=== PATIENT | female | born 1995 | race Caucasian/White ===

== ENCOUNTER 2024-04-08 09:36 | Inpatient (IN) | payer OTHER, SELFPAY ==
[2024-04-08] VITALS (50 sets, daily range): BP systolic 78–110; BP diastolic 47–70; PULSE 59–140; RESP 14–20; TEMP 35.6–37; O2SAT 92–100; BMI 35.0
--- NOTE | ~2024-04-08 | CT_ITS ---
CT of the Abdomen and Pelvis: Indication: Postoperative hypotension, assess for bleeding Technique: 2.5 mm axial scans were obtained through the abdomen and pelvis following intravenous adm inistration of 100 cc of Omnipaque 350. Dose reduction technique was used on this scan by utilizing a utomated exposure control and iterative reconstruction technique. The dose-length product (DLP) was 1 105.63 mGy-cm. Findings: Scans through the lung bases are unremarkable. The liver, spleen, pancreas, gallbladder, and adrenal glands are within normal limits. There is mild bilateral hydroureteronephrosis. No evidence of aortic aneurysm. No lymphadenopathy. No bowel obstruction or bowel wall thickening. There is no evidence to suggest acute appendicitis. Sm all amount of air in the anterior subcutaneous soft tissues are compatible with postoperative change. Images through the pelvis were performed. Urinary bladder collapsed around a Hough catheter. Heteroge neous appearance of the uterus is present, with air and fluid in the endometrial cavity, compatible w ith recent uterine surgery, likely section. No significant hematoma or hemorrhage identified . Impression: Status post recent presumed section with probable postoperative fluid and air in the endomet rial canal. Correlate for any possibility of endometritis. No significant hemorrhage/hematoma identified. Mild bilateral hydroureteronephrosis. Reviewed, dictated and finalized at location . Impression: Status post recent presumed section with probable postoperative fluid and air in the endometrial canal. Correlate for any possibility of endometritis . No significant hemorrhage/hematoma identified. Mild bilateral hydroureteronephrosis.
[2024-04-08] MEDS: ACETAMINOPHEN 500 MG TABLET 1000 MG PO (10:04)
[2024-04-08 10:22] LABS: Basophils Percent Auto 0.2 % (0.2-1.2); Eosinophils Percent Auto 0.3 % (0-4.4); Hematocrit 35.7 % (37.0-47.0); Hemoglobin 11.5 g/dL (12.0-15.0); Immature Granulocyte Percent A 0.7 % (0-0.5); Mean Corpuscular HGB Conc 32.2 g/dl (32-36); Mean Corpuscular Hemoglobin 27.3 pg (26-34); Mean Corpuscular Volume 84.8 fl (80-100); Mean Platelet Volume 10.2 fl (7.4-10.4); Monocytes Percent Auto 7.4 % (2.6-8.5); Neutrophils Absolute Auto 11.2 K/mm3 (1.3-6.7); Neutrophils Percent Auto 79.4 % (45.5-73.1); Platelet Count Result 339 k/mm3 (150-375); Red Blood Count 4.21 M/mm3 (4.2-5.4); Red Cell Distribution Width 13.8 % (11.5-14.5); White Blood Count 14.1 K/mm3 (4.5-10.0)
[2024-04-08] MEDS: LACTATED RINGERS 1,000 ML 125 ML IV CONT ×3 (10:24→14:01)
--- NOTE | 2024-04-08 10:28 | LDADM ---
This patient, Rosalba Brown, was admitted to Labor/Delivery/Recovery 119 on 04/08/24 at 09:36. Plans for labor, pain management and were discussed with patient. Patient/family oriented to hospital policies and general routines including ID bracelet, bed and alarms, visiting hours, pain management, procedures, bathroom and other care routines, personal items, smoking policy, room service/diet and guest tray routines, infant security routines, and visiting hours. Patient/Family are encouraged to report perceived risks to care and to ask questions if they do not understand what they are told or what they should do. See OBIX for further documentation.
[2024-04-08 11:12] LABS: HIV 1/2 Ab P24 Ag Result Negative (Negative)
--- NOTE | 2024-04-08 11:35 | PM.IMHP ---
H&P: HPI History of Present Illness Date/Time: 04/08/24 11:35 Chief Complaint: primary c section Narrative: Patient is a 28 year old who presents for primary c section. Her has been complicated by aortic stenosis, with normal echo and followed by cardiology during . She is asymptomatic. She also has a history of a forceps assisted delivery and 4th degree laceration with her first . Due to risk of recurrence, risks and benefits of attempting vaginal delivery vs primary c section were discussed with the patient, and she desires a primary c section. Denies strong contractions, LOF, vaginal bleeding. GOod movement. Review of Systems Review of Systems: All systems reviewed & are unremarkable except as noted in HPI and below PMFSH Family History Family History Grandparent Hemophilia Social History Social History Smoking status: Former smoker Tobacco type: cigarettes and e-cigarettes/vaping Second hand tobacco smoke exposure: No Smoking end date: 07/14/23 Substance use: never Do You Feel Safe in your Home?: Yes Lack of Transportation: No Lack of Food: Never True Current Housing: I Have Housing Concerned About Future Housing: No Difficulty Paying Gas/Electric Bills: No Difficulty Paying for Meds: No Currently Unemployed: No Education: High School Diploma/GED Difficulty w/ Childcare or Family Care: No Spiritual care concerns: No Meds Home Medications and Allergies Home Medications Medication Instructions Recorded Confirmed Type prenat.vits,terese,hwf-prmu-qmmjl 1 tablet PO DAILY 03/27/24 04/08/24 History Allergies Allergy/AdvReac Type Severity Reaction Status Date / Time Sulfa (Sulfonamide Allergy Swelling Verified 04/08/24 10:26 Antibiotics) Vital Signs Vital Signs - 24 hr 04/08/24 10:00 04/08/24 10:01 04/08/24 10:28 Pulse Rate 140 H 92 Blood Pressure 101/65 101/70 Oxygen Delivery Room Air Exam Const: General: comfortable and no acute distress Eyes: General: appearance normal, both eyes and all related structures Resp: Effort & Inspection: normal respiratory effort Cardio: Rate: regular rate Rhythm: regular rhythm Extrem: General: normal to inspection Psych: Mental Status: mental status grossly normal H&P: Results Labs Labs: Short CBC 04/08/24 Range/Units 10:06 WBC 14.1 H (4.5-10.0) K/mm3 Hgb 11.5 L (12.0-15.0) g/dL Hct 35.7 L (37.0-47.0) % Plt Count 339 (150-375) k/mm3 Assessment and Plan Assessment and plan (1) Hx of maternal fourth degree perineal laceration, currently : Code(s): O09.299 - Supervision of with other poor reproductive or obstetric history, unspecified trimester Status: Acute Assessment and Plan: - risks and benefits of trial of labor and delivery vs primary c section discussed with patient who would like to proceed with primary c section (2) Hx of forceps delivery in prior , currently : Code(s): O09.299 - Supervision of with other poor reproductive or obstetric history, unspecified trimester Status: Acute (3) Aortic stenosis due to bicuspid aortic valve: Code(s): Q23.0 - Congenital stenosis of aortic valve; Q23.1 - Congenital insufficiency of aortic valve Status: Acute Assessment and Plan: - seen by cardiology - echo wnl this - asymptomatic
--- NOTE | 2024-04-08 11:55 | WPDHPUPDATE1 ---
History and Physical Update Update Date/Time: 04/08/24 11:55 History and Physical has been reviewed, including an updated exam of the patient. There are NO changes in the patient's condition. Risks, benefits, and alternatives have been discussed and questions answered. Patient agrees to proceed with procedure.
[2024-04-08] MEDS: FAMOTIDINE 20 MG/2 ML VIAL IV PUSH (12:05)
[2024-04-08] MEDS: ONDANSETRON INJ 4 MG/2 ML VIAL IV PUSH ×2 (12:05→21:40)
--- NOTE | 2024-04-08 12:29 | WPDANESEPPF ---
Anes - Initial Pre Proc Eval Procedure: Operation Date: 04/08/24 12:00 Proposed Procedures p Repeat Section - Juancho Denise MD Date/Time: 04/08/24 12:29 Surgeon: Juancho Denise MD Pre Op Diagnosis: C/S Patient Data Age: 28 Gender: F Height: 1.57 m Weight: 87 kg Last Vital Signs Pulse 92 04/08/24 10:01 BP 101/70 04/08/24 10:01 O2 Del Method Room Air 04/08/24 10:28 Allergies Allergy/AdvReac Type Severity Reaction Status Date / Time Sulfa (Sulfonamide Allergy Swelling Verified 04/08/24 10:26 Antibiotics) Home Medications Medication Instructions Recorded Confirmed Type prenat.vits,terese,tun-kted-exxue 1 tablet PO DAILY 03/27/24 04/08/24 History Laboratory Tests 04/08/24 10:06 WBC 14.1 H K/mm3 (4.5-10.0) RBC 4.21 M/mm3 (4.2-5.4) Hgb 11.5 L g/dL (12.0-15.0) Hct 35.7 L % (37.0-47.0) MCV 84.8 fl (80-100) MCH 27.3 pg (26-34) MCHC 32.2 g/dl (32-36) RDW 13.8 % (11.5-14.5) Plt Count 339 k/mm3 (150-375) MPV 10.2 fl (7.4-10.4) Immature Gran % (Auto) 0.7 H % (0-0.5) Neut % (Auto) 79.4 H % (45.5-73.1) Lymph % (Auto) 12.0 L % (18.3-44.2) [place] % (Auto) 7.4 % (2.6-8.5) Eos % (Auto) 0.3 % (0-4.4) Baso % (Auto) 0.2 % (0.2-1.2) Lymph # (Auto) 1.70 K/mm3 (0.9-3.2) [place] # (Auto) 1.0 H K/mm3 (0.1-0.6) Eos # (Auto) 0.0 K/mm3 (0-0.3) Baso # (Auto) 0.0 K/mm3 (0.0-0.1) Abs Immat Gran (auto) 0.10 H K/mm3 (0.00-0.031) Absolute Neuts (auto) 11.2 H K/mm3 (1.3-6.7) Absolute Nucleated RBC 0.000 K/mm3 (0.0-0.012) Nucleated RBC % 0.0 % (0.0-0.2) RPR Pending HIV 1&2 Ab/P24 Ag 4thGn Negative (Negative) Blood Type AB Positive Antibody Screen Negative Patient hx anesthesia problems: none Family hx anesthesia problems: none Results Review: All pre-operative results and documents have been reviewed as part of the pre-operative evaluation. [facility] Family History Family History Grandparent Hemophilia Social History Social History Smoking status: Former smoker Tobacco type: cigarettes and e-cigarettes/vaping Second hand tobacco smoke exposure: No Smoking end date: 07/14/23 Substance use: never Do You Feel Safe in your Home?: Yes Lack of Transportation: No Lack of Food: Never True Current Housing: I Have Housing Concerned About Future Housing: No Difficulty Paying Gas/Electric Bills: No Difficulty Paying for Meds: No Currently Unemployed: No Education: High School Diploma/GED Difficulty w/ Childcare or Family Care: No Spiritual care concerns: No Anes - Eval Final PreProcedure Day of Procedure 04/08/24 12:29 Patient weight: obese Heart: regular rate and rhythm Lungs: clear to auscultation Airway: Mallampati scale class II Neurological: alert and oriented Last oral intake: >/= 8 hours ASA classification: II Emergent: no Anesthetic plan: proceed Anesthesia type and monitoring: regional spinal and standard monitoring Results Review: All pre-operative results and documents have been reviewed as part of the pre-operative evaluation. Informed Consent: The patient's anesthetic plan and its attendant risks and benefits were discussed with the patient/family/POA. Questions were solicited and answers provided to the satisfaction of the patient/family/POA.
[2024-04-08] MEDS: OXYTOCIN 30 UNITS/NS 500 ML 30 UNITS/500 ML BAG 125 UNITS IV CONT (14:01)
--- NOTE | 2024-04-08 16:40 | PC.NURSE ---
called to notify dr thibodeaux of soft BPs pt asymptomatic. Pt baseline Bps lower. no new orders.
--- NOTE | 2024-04-08 17:26 | P.PCNOB_ITS ---
OB - Delivery Note Procedure Delivery date: 04/08/24 Pre-op diagnosis: Other (previous forceps assisted vaginal delivery, previous fourth degree laceration) Post-op Diagnosis: Same Induction method: None Delivery monitor: External FHT Prior to decision for section, ACOG/SM labor guidelines were considered and discussed with the patient and staff. Decision made to proceed with the section.: Yes Procedure Performed: Primary Primary branch: low cervical, transverse Surgeon: Juancho Denise MD Anesthesia type: Spinal Description of Procedure/Findings: The patient was taken to the operating room where she was placed in the dorsal supine position with a leftward tilt. The electronic monitor was placed and heart rate was found to be reassuring. She was prepped and draped in the normal sterile fashion, and anesthesia was checked to be adequate. A Pfannensteil skin incision was made with the scalpel and carried through to the underlying layer of fascia with the scalpel. The fascia was incised in the midl ine and the incision extended laterally with the Packer scissors. The superior aspect of the fascial incision was then grasped with Benitez clamps, elevated, and the underlying rectus muscles dissected off bluntly and with Packer scissors. Attention was then turned to the inferior aspect of the fascial incision, which in similar fashion was grasped, elevated, and the rectus muscles dissected off.? The rectus muscles were then in the midline, and the peritoneum entered using two Peans and Metzenbaum scissors. The peritoneal incision was extended superiorly and inferiorly with good visualization of the bladder. With the bladder blade providing retraction and visualization, the lower uterine segment was incised in a transverse fashion with the scalpel. The uterine incision was then extended laterally. The bladder blade was removed and the infant's head was elevated and delivered atraumatically. The remainder of the infant was then delivered without difficulty, and the 's nose and mouth were suctioned with the bulb suction. The umbilical cord was doubly clamped and cut. The infant was then handed off to the waiting nursing staff. Specimens then obtained as listed below. The placenta was then removed manually and the uterus was exteriorized and cleared of all clots and debris. The uterine incision was repaired with 0- Monocryl in a running, interlocked fashion. The posterior cul-de-sac was manually cleared of all clots and debris. The uterus was returned to the abdomen. The gutters were then manually cleared of all clots and debris.? The uterine incision was visualized to be hemostatic. The fascia was reapproximated with 0-Vicryl in a running fashion. The subcutaneous tissues were irrigated with warmed normal saline, and hemostasis was assured. The subcutaneous tissue was greater than 2 cm and closed in a running fashion with 2-0 plain gut suture.? The skin was closed with 4-0 monocryl in a running subcuticular stitch. Fundal pressure was applied to express remaining intrauterine clots and debris. The patient tolerated the procedure well. Sponge, lap, and needle counts were correct times three per nursing. The patient was taken to the recovery room in stable condition. Complications: No immediate complications Condition: Stable Disposition: Floor Baby Date of : 04/08/24 Weeks of gestation at delivery: 39 gender: Male Weight (pounds): 9 Weight (ounces): 6 presentation: vertex Placenta delivery description: Expressed Cord Vessel Description: 3 Vessels, Nuchal Cord, Delayed Cord Clamping and Other (two possible umbilical varices noted )
--- NOTE | 2024-04-08 18:03 | PC.NURSE ---
Patient transferred to post room #292 via stretcher. Support person present. Oriented to unit, room, information board, rooming in, admission packet and security measures. Patient verbalizes understanding.
[2024-04-08] MEDS: KETOROLAC 15 MG/ML VIAL (*BKC) IV PUSH (18:30)
[2024-04-08] MEDS: SIMETHICONE 80 MG TAB.CHEW PO (18:31)
[2024-04-08] MEDS: DOCUSATE SODIUM 100 MG CAPSULE PO (18:31)
[2024-04-08] MEDS: ACETAMINOPHEN 325 MG TABLET 650 MG PO (18:31)
[2024-04-08] MEDS: diphenhydrAMINE HCl INJ 50 MG/ML VIAL 25 MG IV PUSH (18:33)
[2024-04-08] MEDS: DEXTROSE 5%/0.45% SOD CHL 1,000 ML 125 ML IV CONT (21:07)
[2024-04-08] MEDS: LIDOCAINE 5% PATCH 1 PATCH TRANSDERM (21:40)
[2024-04-09] VITALS (13 sets, daily range): BP systolic 73–93; BP diastolic 40–62; PULSE 64–84; RESP 14–18; TEMP 36.4–37; O2SAT 98–100
[2024-04-09] MEDS: KETOROLAC 15 MG/ML VIAL (*BKC) IV PUSH ×3 (00:57→13:00)
[2024-04-09] MEDS: ACETAMINOPHEN 325 MG TABLET 650 MG PO ×4 (00:58→18:51)
[2024-04-09] MEDS: DEXTROSE 5%/0.45% SOD CHL 1,000 ML 999 ML IV CONT (01:00)
[2024-04-09 05:04] LABS: Basophils Percent Auto 0.2 % (0.2-1.2); Eosinophils Absolute Auto 0.1 K/mm3 (0-0.3); Eosinophils Percent Auto 0.7 % (0-4.4); Hemoglobin 7.9 g/dL (12.0-15.0); Immature Granulocyte Percent A 0.8 % (0-0.5); Lymphocytes Absolute Auto 1.84 K/mm3 (0.9-3.2); Lymphocytes Percent Auto 14.4 % (18.3-44.2); Mean Corpuscular HGB Conc 30.4 g/dl (32-36); Mean Corpuscular Hemoglobin 27.3 pg (26-34); Mean Platelet Volume 10.5 fl (7.4-10.4); Neutrophils Absolute Auto 9.7 K/mm3 (1.3-6.7); Neutrophils Percent Auto 75.9 % (45.5-73.1); Platelet Count Result 266 k/mm3 (150-375); Red Blood Count 2.89 M/mm3 (4.2-5.4); Red Cell Distribution Width 14.1 % (11.5-14.5); White Blood Count 12.8 K/mm3 (4.5-10.0)
[2024-04-09 05:57] LABS: Estimated CRCL calculation 144 ml/min; Estimated Glomerular Filt Rate > 60
[2024-04-09] MEDS: DEXTROSE 5%/0.45% SOD CHL 1,000 ML 125 ML IV CONT (06:00)
[2024-04-09] MEDS: POLYSACCHARIDE IRON COMPLEX 150 MG CAPSULE PO ×2 (07:02→17:03)
[2024-04-09] MEDS: SIMETHICONE 80 MG TAB.CHEW PO ×3 (07:02→17:03)
[2024-04-09] MEDS: MULTIVIT/MIN/PREN/FOL AC/IRON TABLET 1 TAB PO (09:11)
[2024-04-09] MEDS: DOCUSATE SODIUM 100 MG CAPSULE PO ×2 (09:11→17:03)
--- NOTE | 2024-04-09 09:46 | PM.OBPNVD ---
OB - PN: Subj Subjective Date/time seen: 04/09/24 09:46 Patient comments: no complaints, pain well controlled, tolerating diet and flatus present OB - PN: Obj Data Labs 04/09/24 04:50 04/09/24 05:40 Labs: Laboratory Results - last 24 hr 04/08/24 04/09/24 04/09/24 10:06 04:50 05:40 WBC 14.1 H 12.8 H RBC 4.21 2.89 L Hgb 11.5 L 7.9 L D Hct 35.7 L 26.0 L MCV 84.8 90.0 D MCH 27.3 27.3 MCHC 32.2 30.4 L RDW 13.8 14.1 Plt Count 339 266 MPV 10.2 10.5 H Immature Gran % (Auto) 0.7 H 0.8 H Neut % (Auto) 79.4 H 75.9 H Lymph % (Auto) 12.0 L 14.4 L [place] % (Auto) 7.4 8.0 Eos % (Auto) 0.3 0.7 Baso % (Auto) 0.2 0.2 Lymph # (Auto) 1.70 1.84 [place] # (Auto) 1.0 H 1.0 H Eos # (Auto) 0.0 0.1 Baso # (Auto) 0.0 0.0 Abs Immat Gran (auto) 0.10 H 0.10 H Absolute Neuts (auto) 11.2 H 9.7 H Absolute Nucleated RBC 0.000 0.000 Nucleated RBC % 0.0 0.0 Creatinine 0.50 L Estim Creat Clear Calc 144 Estimated GFR > 60 HIV 1&2 Ab/P24 Ag 4thGn Negative Blood Type AB Positive Antibody Screen Negative Crossmatch See Detail Imaging Radiologist's impression: Impressions Abdomen/Pelvis CT 04/09/24 05:51 Impression: Status post recent presumed section with probable postoperative fluid and air in the endometrial canal. Correlate for any possibility of endometritis. No significant hemorrhage/hematoma identified. Mild bilateral hydroureteronephrosis. OB - PN A/P Plan day: 1 Comments: Post Op LTCS - no problems, routine recovery Time Spent With Patient Time: Total time spent is greater than 50% in coordination of care (as documented) at patient's floor/unit and/or counseling patient: Exam Const: General: cooperative, healthy appearing, comfortable and no acute distress Resp: Auscultation: no crackles, no rales, no rhonchi and no wheezes Cardio: Rhythm: regular rhythm Heart sounds: no click and no murmurs GI: Inspection: non-distended Auscultation: normal bowel sounds Extrem: General: normal to inspection, no pedal edema and no calf tenderness
[2024-04-09] MEDS: SODIUM CHLORIDE 0.9% IV 250 ML 30 ML IV CONT (09:53)
--- NOTE | 2024-04-09 11:45 | PC.NURSE ---
Mother verbalizes she is able to independently latch with appropriate positioning and alignment. She denies any nipple discomfort and is responsively . is currently meeting outcomes for weight, output, jaundice. Mother has concerns that is not 'getting enough'. Reviewed signs of adequate intake including voids and stools, weight, and jaundice levels. She states that her milk did come in with her first baby, but that she did not breastfeed that child. Educated mother about infant's first 24 hours of life being very sleepy but waking and cluster feeding in the next 24 hours. Mother declines any additional assistance or education at this time. Reminded mom to keep awake when at the breast to encourage more consistent feeding. Mother is encouraged to call for assistance if her doesn?t latch, pain with latching, questions or concerns. Mother voiced understanding of information shared along with the mom/baby guide for an additional resource. Reported to the Primary RN.
--- NOTE | 2024-04-09 14:00 | WPDANLDPN2 ---
Anes-Prog Note L&D Date/Time: 04/09/24 14:00 Comfortable throughout: labor and section Neuraxial method: epidural Epidural/Spinal procedure site: clean & non-tender Neuro status: Neuro function grossly intact. Cardiovascular status: normal Respiratory status: normal Airway patency: baseline Mental status: baseline Post-Op hydration status: normal Vital Signs: Last Vital Signs Temp 36.8 C 04/09/24 12:08 Pulse 76 04/09/24 12:08 Resp 16 04/09/24 12:08 BP 86/57 L 04/09/24 12:08 Pulse Ox 99 04/09/24 12:08 O2 Del Method Room Air 04/09/24 07:20 Pain score (VAS): 4/10 I/O: Intake & Output 04/08/24 04/09/24 04/09/24 23:59 07:59 15:59 Intake Total 3485.4 906 Output Total 750 3000 650 Balance -750 485.4 256 Post-procedural complaints: pruritis moderate, treatment effective Patient feedback: Patient satisfied with anesthetic care.
--- NOTE | 2024-04-09 14:00 | WPDANLDNPN2 ---
Anes-Prog Note L&D-Neuraxial Date/Time: 04/09/24 14:00 Neuraxial medications: epidural PF morphine Opiod-related complaints: pruritis moderate, treatment effective Patient feedback: Patient satisfied with post-operative pain management.
[2024-04-09 14:37] LABS: Rapid Plasma Reagin Non-Reactive (NonReactive)
[2024-04-09] MEDS: HYDROcodone/acetaminophen (*CRX) 5-325 MG TABLET 1 TAB PO ×2 (14:50→18:51)
[2024-04-09 17:12] LABS: Hematocrit 35.2 % (37.0-47.0); Hemoglobin 11.5 g/dL (12.0-15.0)
[2024-04-09] MEDS: IBUPROFEN 600 MG TABLET PO (18:51)
[2024-04-09] MEDS: ONDANSETRON INJ 4 MG/2 ML VIAL IV PUSH (18:51)
[2024-04-09] MEDS: LIDOCAINE 5% PATCH 1 PATCH TRANSDERM (21:49)
[2024-04-10] MEDS: ACETAMINOPHEN 325 MG TABLET 650 MG PO ×4 (01:50→20:17)
[2024-04-10] MEDS: IBUPROFEN 600 MG TABLET PO ×4 (01:51→20:17)
[2024-04-10] MEDS: MULTIVIT/MIN/PREN/FOL AC/IRON TABLET 1 TAB PO (08:02)
[2024-04-10] MEDS: DOCUSATE SODIUM 100 MG CAPSULE PO ×2 (08:02→17:07)
[2024-04-10] MEDS: SIMETHICONE 80 MG TAB.CHEW PO ×3 (08:02→17:07)
[2024-04-10] MEDS: POLYSACCHARIDE IRON COMPLEX 150 MG CAPSULE PO ×2 (08:02→17:07)
--- NOTE | 2024-04-10 08:30 | PC.NURSE ---
Introductions were made, then consulted with patient to assess needs related to . Discussed with mother milk production, building/maintaining a milk supply, duration of feeding, signs of adequate intake/output and how to record on the feeding sheet. Mother states is frustrated at the breast when she attempts to latch him. Educated on calming infant when he is very fussy before trying to breastfeed. Mother is supplementing with formula and desires to just bottle feed at this time. Discussed with mother her intentions, and she states she does want to put infant to breast later. Encouraged pumping if is not going to breast regularly to support her milk supply. Mother is receptive to pumping later, once she has rested. Patient states she will call out on the call light when she is ready to pump/latch . Mother voiced understanding of information provided. Patient will call if there is a request for assistance. Reported to the Primary RN.
[2024-04-10] MEDS: ONDANSETRON INJ 4 MG/2 ML VIAL IV PUSH (09:08)
[2024-04-10 09:18] VITALS: BP 92/58; PULSE 70; RESP 20; TEMP 36.7; O2SAT 98
--- NOTE | 2024-04-10 11:50 | PC.NURSE ---
Consulted with patient to assess needs related to . Discussed with mother her successes, concerns and any questions she has. We reviewed working with the infant, supporting breast, protecting her nipples with an optimal deep latch, and good positioning. Reviewed positioning and alignment, supporting breast, off-centered (asymmetrical latch) and leading with the chin with big, open, wide gape. latched optimally to the right breast in cross cradle position. The infant was not able to maintain latch without detaching and crying. Encouraged mother not to start a feeding with infant so upset. Suggested giving a small amount of formula first to settle infant and then attempt to latch him. Mother has good colostrum but is frustrated when infant cries at the breast. She desires to end the attempt and give the baby a bottle of formula. Mother is open to starting a pumping regimen at this time. Medela breast pump provided to patient, her personal breast pump is at home. Instructions given on cleaning, care, usage, that there should be no pain, pumping schedule for milk production, collection, and storage of human milk. Patient was assessed for correct placement, flange size, to pump for comfort and nipple stretching/stimulation for adequate milk production every 3 hours (8 times in 24 hours) 1-2 times at night. Mother voiced understanding of the education shared along with mom/baby guide and the pump measurement. Mother voiced understanding of the education shared, to call for assistance if the infant does not latch or if there is discomfort with . Reported to the Primary RN.
--- NOTE | 2024-04-10 13:19 | PM.OBPNVD ---
OB - PN: Subj Subjective Date/time seen: 04/10/24 13:19 Interval history: POD#2 s/p PLTCS Doing well, pain well controlled Tolerating general diet Voiding without issue Breast/formula feeding, discussed pumping and paced bottle feeding OB - PN: Obj Data Labs 04/09/24 17:02 04/09/24 05:40 Labs: Laboratory Results - last 24 hr 04/08/24 04/09/24 10:06 17:02 Hgb 11.5 L D Hct 35.2 L RPR Non-reactive Crossmatch See Detail OB - PN A/P Assessment and Plan (1) Bicuspid aortic valve: Code(s): Q23.1 - Congenital insufficiency of aortic valve Status: Acute (2) S/P : Code(s): Z98.891 - History of uterine scar from previous surgery Status: Acute Plan day: 2 Plan: routine care Time Spent With Patient Time: Total time spent is greater than 50% in coordination of care (as documented) at patient's floor/unit and/or counseling patient: Review of Systems Review of Systems: All systems reviewed & are unremarkable except as noted in HPI and below Exam Const: General: comfortable and no acute distress Orientation/consciousness: patient oriented x3 Resp: Effort & Inspection: normal respiratory effort GI: GI Palp: Yes Soft to palpation and No Tenderness to palpation present (GI) Other: incision c/d/i
[2024-04-10 20:22] VITALS: BP 99/68; PULSE 72; RESP 18; TEMP 37.1; O2SAT 97
[2024-04-10] MEDS: HYDROcodone/acetaminophen (*CRX) 5-325 MG TABLET 1 TAB PO (23:42)
[2024-04-10] MEDS: LIDOCAINE 5% PATCH 1 PATCH TRANSDERM (23:47)
[2024-04-11] MEDS: IBUPROFEN 600 MG TABLET PO ×3 (02:00→13:13)
[2024-04-11] MEDS: ACETAMINOPHEN 325 MG TABLET 650 MG PO ×3 (02:00→13:13)
[2024-04-11] MEDS: DOCUSATE SODIUM 100 MG CAPSULE PO (07:41)
[2024-04-11] MEDS: MULTIVIT/MIN/PREN/FOL AC/IRON TABLET 1 TAB PO (07:41)
[2024-04-11] MEDS: SIMETHICONE 80 MG TAB.CHEW PO ×2 (07:41→13:13)
[2024-04-11 08:16] VITALS: BP 104/63; PULSE 78; RESP 16; TEMP 37.1; O2SAT 98
--- NOTE | 2024-04-11 13:53 | PM.OBDSVD ---
DS: Admitting Diagnosis Discharge Date April 11, 2024 Admitting Diagnosis term , previous DS: Discharge Diagnosis Discharge Diagnosis (1) S/P : Code(s): Z98.891 - History of uterine scar from previous surgery Status: Acute OB - DS: Summary OB Procedures : None OB Procedures Intrapartum: OB Procedures: : None Peripartum Data Procedures: Procedures Operation Date: 04/08/24 12:00 Actual Procedure Side Surgeon p Section Juancho Denise MD Time Spent with Patient Time attestation: Total time spent providing and/or coordinating discharge services: DS: Data Data Completed and Pending Pending studies at discharge: Pending at discharge 04/08/24 13:25 Surgical [PTH] Routine Discharge Plan Discharge Discharging Clinician: Tom Villalta Patient Disposition: Home, Self-Care Activity: pelvic rest Diet: regular Discharge Instructions: Education: Mom and Baby Guide Given to: Mother Follow-Up: Call your delivering provider's office for an appointment to be seen in: 1 Week Mom and baby should come to the [facility] for the follow-up appointment. Appointment Date/Time: April 13, 2024 at 11:00 am What to expect at your follow-up visit: Blood Pressure Check Physical Assessment Call [phone] if you are unable to keep your appointment time. BREAST CARE: * Wear a snug supportive bra. * For engorgement discomfort: Breast Feeding: * Apply warm moist washcloths * Express milk as needed to relieve engorgement * Wear loose clothing Bottle Feeding: * May apply ice packs * For sore nipples: * Identify correct latch-on * Apply warm moist washcloths before and after nursing * Air dry nipples after nursing * May apply Lansinoh cream to nipples ABDOMINAL INCISION: (if applicable) * Allow incision to air dry * Do NOT use lotions for powders on your incision * When showering, allow soap and water to run over the incision, but do not wash incision EPISIOTOMY/PERINEAL CARE: * Until bleeding stops, use your cristopher bottle after urinating * Change your pad frequently throughout the day * You may take sitz baths several times a day (fill your bathtub with warm water and soak for 20 minutes.) Do NOT bathe in the water * No tub baths until seen by your physician - You may shower ACTIVITY: * Rest as much as possible. * Do not exercise or lift anything heavier than your baby (such as laundry or other children.) * Avoid stairs or driving as much as possible. * Do not put anything into the vagina. No douching, tampons, or sexual activity until seen by physician. NOTIFY PHYSICIAN IF YOU HAVE ANY QUESTIONS OR IF ANY OF THE FOLLOWING SYMPTOMS OCCUR: * If your episiotomy or incision becomes red, swollen, or more painful than what you have experienced in the hospital. * If your vaginal bleeding becomes foul smelling. * If your vaginal bleeding becomes more heavy than a period or if your bleeding changes from pink to bright red. However, you may pass an occasional walnut-sized clot once or twice for the first week . * If you experience a sharp, shooting pain in you calves. * If you discover a hard, reddened area on your breast or if you experience flu-like symptoms. DIET: * Eat regular, well-balanced meals. * Drink plenty of fluids daily. If , drink to thirst. Patient Instructions: Antibiotic Form Stand Alone Forms: General Discharge Information Follow-up/Referrals: Tom Villalta MD [Physician] - Discharge Medications: New oxycodone-acetaminophen 5-325 mg tablet 1 tablet PO Q4H PRN (Reason: pain) Qty: 25 0RF Continued #2 Tablet 1 tablet PO DAILY Date of admission: 04/08/24 09:36 Primary Care Provider: PHYSICIAN,BILLING REPRESENTATIVE Admitting Provider:
[2024-04-11] MEDS: TETANUS,DIPHTHERIA,AC PERTUSSIS ADULT (0.5 ML) BOOSTRIX IM (14:14)
[2024-04-13 11:36] VITALS: BP 109/65; PULSE 72; RESP 18; TEMP 36.7; O2SAT 100
== END 2024-04-11 14:52 | disposition home or self-care (01) | DRG 787 ==
LOC: ANHOB2 04-11 13:54 → ANHLDR 04-13 13:17 → ANHOB2 04-13 13:17
PROVIDERS: Admitting Provider Obstetrics & Gynecology; Visit Provider Obstetrics & Gynecology
PROC: 10D00Z1 Extraction of Products of Conception, Low, Open Approach (ICD-10-PCS; CPT 59514; principal; 2024-04-08 12:00)
DX: O99.42 Diseases of the circulatory system complicating childbirth (principal); Q23.1 Congenital insufficiency of aortic valve; O69.81X0 Labor and delivery complicated by cord around neck, without compression, not applicable or unspecified; Z3A.39 39 weeks gestation of pregnancy; Z37.0 Single live birth; Z87.891 Personal history of nicotine dependence
CPT/HCPCS: 36415; 36430; 74177; 85014; 85018; 85025; 86592; 86703; 86850; 86900; 86901; 86923; 88307; 90715; A9270; G0432; J1200; J1885; J2274; J2371; J2405; J2590; J7050; J7120; P9016; Q9967